=== PATIENT | male | born 1955 | race Caucasian/White ===

== ENCOUNTER 2024-05-29 13:50 | Emergency (ER) | payer MEDICARE, SELFPAY ==
[2024-05-29 14:01] VITALS: BP 130/74; PULSE 112; RESP 18; TEMP 36.7; O2SAT 98
--- NOTE | 2024-05-29 14:05 | ECG_ITS ---
Test Date: 2024-05-29 14:27:31 Measurements Intervals [place] Rate: 102 P: 64 CT: 167 QRS: 7 QRSD: 97 T: 40 QT: 321 QTc: 419 Interpretive Statements SINUS TACHYCARDIA POSSIBLE LEFT ATRIAL ENLARGEMENT POSSIBLE ANTERIOR MYOCARDIAL INFARCTION , PROBABLY OLD INFERIOR INFARCT, AGE INDETERMINATE BASELINE ARTIFACT- I, III, AVR, AVL ABNORMAL ECG No previous ECG available for comparison Electronically Signed On 05-29-2024 15:50:30 CDT by Magnus Lobo D.O.
--- NOTE | 2024-05-29 14:05 | ED.EYEPROB ---
HPI - Eye Problem General Chief complaint: Eye Problems <Estellaconstance Alfonso APRN - Last Filed: 05/29/24 14:08> Stated complaint: Left eye swelling/redness <Estella Whelan PALOMO Alfonso - Last Filed: 05/29/24 14:08> Time Seen by Provider: 05/29/24 14:00 <Estella LLorri Alfonso APRN - Last Filed: 05/29/24 14:08> Focused HPI: Patient is a 69-year-old male who presents to the ER with complaints of left eye pain and redness started approximately 4-5 days ago. He reports the redness has progressively become worse along with the soreness. Patient reports his eye feels like it has a rock in it. He reports when he wakes up in the morning his eye is crusted shut. Pt denies any other pertinent medical history. GENERAL: Well-appearing, well-nourished, and in no acute distress. HEAD: Normocephalic, atraumatic. L sclera red, no eyelid edema, no visible drainage CHEST: Clear to auscultation. ?No respiratory distress. HEART: Regular rate and rhythm.? NEURO: ?Alert and oriented x3. Patient screened in triage and initial orders placed.? ?Additional care and disposition to be based upon?diagnostic testing and treatment. <Estella Alfonso APRN - Last Filed: 05/29/24 14:08> Source: patient <Grady Wells PA-C - Last Filed: 05/30/24 02:25> Mode of arrival: ambulatory <YUE Akhtar Last Filed: 05/30/24 02:25> Limitations: no limitations <YUE Akhtar Last Filed: 05/30/24 02:25> History of Present Illness HPI Narrative: Agree with MSE note above. Patient does had that he was mowing and clipping grass this same day as when symptoms started. He does note that the left eye feels matted shut in the mornings with crust. Endorses some blurry vision but no headache or seeing halos. <YUE Akhtar Last Filed: 05/30/24 02:25> Related Data Allergies/adverse reactions: Allergies Allergy/AdvReac Type Severity Reaction Status Date / Time No Known Allergies Allergy Mild Verified 05/29/24 13:51 <Estella Alfonso APRN - Last Filed: 05/29/24 14:08> Review of Systems Review of Systems: All systems as dictated in HPI <Grady Wells PA-C - Last Filed: 05/30/24 02:25> Exam Narrative: GENERAL: Well-appearing, well-nourished, and in no acute distress. HEAD: Normocephalic, atraumatic. EYES: PERRLA and EOMI. The left conjunctiva is injected with scant amount of drainage. Wood's lamp exam does not reveal any corneal abrasion or foreign bodies. Negative Jessica sign. IOP is 16 bilaterally. ENT: Nares clear, no rhinorrhea or epistaxis. Mucous membranes moist. Oropharynx without tonsillar hypertrophy exudate or other lesions. NECK: Supple. No adenopathy or masses. CHEST: No respiratory distress. Clear to auscultation. No wheezes rales or rhonchi HEART: Regular rate and rhythm. No murmur heard. Normal peripheral pulses. ABDOMEN: Soft, nontender, nondistended, normal active bowel sounds. MSK: Normal range of motion. No edema. SKIN: Warm, dry, no rash. NEURO: Alert and oriented x4. No focal deficits. PSYCH: Normal mood and affect. <Grady Wells PA-C - Last Filed: 05/30/24 02:25> Course Vital Signs Vital signs: Vital Signs Temperature 98.1 F 05/29/24 14:01 Pulse Rate 112 H 05/29/24 14:01 Respiratory Rate 18 05/29/24 14:01 Blood Pressure 130/74 05/29/24 14:01 Pulse Oximetry 98 05/29/24 14:01 Temperature 98.1 F 05/29/24 14:01 Pulse Rate 112 H 05/29/24 14:01 Respiratory Rate 18 05/29/24 14:01 Blood Pressure 130/74 05/29/24 14:01 Pulse Oximetry 98 05/29/24 14:01 <Estella Alfonso APRN - Last Filed: 05/29/24 14:08> Vital Signs Temperature 98.1 F 05/29/24 14:01 Pulse Rate 112 H 05/29/24 14:01 Respiratory Rate 18 05/29/24 14:01 Blood Pressure 130/74 05/29/24 14:01 Pulse Oximetry 98 05/29/24 14:01 Temperature 98.1 F 05/29/24 14:01 Pulse Rate 112 H 05/29/24 14:01 Respiratory Rate 18 05/29/24 14:01 Blood Pressure 130/74 05/29/24 14:01 Pulse Oximetry 98 05/29/24 14:01 <Grady Wells PA-C - Last Filed: 05/30/24 02:25> MDM - Eye Problem MDM Narrative Medical decision making narrative: This is a 69-year-old male who presents to the ED for chief complaint of left eye redness and drainage for the past 4-5 days after mowing the grass. Vitals are normal. Exam remarkable for injected left conjunctiva. No foreign bodies or corneal abrasions appreciated. Intra-ocular pressures bilaterally are normal. Presentation most likely consistent with bacterial conjunctivitis. Patient will be given Rx for ofloxacin drops and instructed to follow-up with [facility] this week. Patient will be discharged in stable condition. Supportive measures discussed and return precautions given. Patient is understanding and agreeable with plan for discharge with ophthalmology follow-up. <Grady Wells PA-C - Last Filed: 05/30/24 02:25> Discharge Plan Discharge Clinical Impression: Bacterial conjunctivitis <Estella Alfonso APRN - Last Filed: 05/29/24 14:08> Patient Disposition: Home <Estella Alfonso APRN - Last Filed: 05/29/24 14:08> Condition: Stable <Estella Alfonso APRN - Last Filed: 05/29/24 14:08> Instructions: Antibiotic Form <Estella Alfonso APRN - Last Filed: 05/29/24 14:08> Additional Instructions: Your exam today is likely showing bacterial conjunctivitis. Please use antibiotics drops as prescribed. Follow-up with [facility] this week. If you have any new or worsening symptoms please return to the ER for further evaluation. <Estella Alfonso APRN - Last Filed: 05/29/24 14:08> Patient Language: Citizen Of [place] <Estella Alfonso APRN - Last Filed: 05/29/24 14:08> Prescriptions: New ofloxacin 0.3 % drops See Rx Instructions .ROUTE .COMPLEX Qty: 5 0RF Rx Instructions: put 1-2 drps into affected eye(s) every 2-4 h x 2 days, then 1-2 drps 4 times/day days 3-7 <Estella Alfonso APRN - Last Filed: 05/29/24 14:08> Follow-up/Referrals: PHYSICIAN,CREDIT COLLECTIONS ANALYST [Non-Staff] - <Estella Alfonso APRN - Last Filed: 05/29/24 14:08> Time of Disposition: 17:58 <Estella Alfonso APRN - Last Filed: 05/29/24 14:08> 17:58 <Grady Wells PA-C - Last Filed: 05/30/24 02:25>
--- OUTSIDE RECORDS SUMMARY | 2024-05-29 15:41 | XMS_ITS | Data Portability ---
Author Organization [facility] Address [address] [place] [address] Assessment No assessment recorded. Plan of Treatment Reminders Order Date Submit Date Provider Last Modified By Organization Details Last Modified Time Details Appointments None recorded. Lab alkaline phosphatase , bone-specif ic, serum 2023 024 [facility], [address] [place] [address], [address], [place], [address], 4 06:15:48 gamma-gluta myl transferase (ggt), serum 2023 024 [facility], [address] [facility] [address], [address], [place], [address], 4 06:15:49 bilirubin, total + direct, serum or plasma 2023 024 [facility], [address], [address], [place], [address], 4 06:15:49 influenza virus A + B and SARS CoV 2 and SARS-relate d CoV RNA panel, SHANIKA+probe, respiratory specimen 2023 024 [facility], [address] [facility] [facility], [place], [address], 4 14:09:17 TSH, ultra-sensi tive, serum 2023 024 F[facility], [address] [place], [place] [address] [address], [address], [place], [address], 4 06:15:50 CBC w/ auto diff 2021 022 [facility], [address] [facility], [address], [place], [address], 2 15:50:06 urinalysis, dipstick 2021 022 oao [facility], [address] [place] [address], [address], [place], [address], 2 15:50:06 CMP, serum or plasma 2021 022 [facility], [address] [place] [address], [address], [place], [address], 2 15:50:06 lipid panel, serum 2021 022 [facility], [address] [place] [address], [address], [place], [address], 2 15:50:06 PSA, total, serum or plasma 2021 022 [facility], [address] [place] [address], [address], [place], [address], 2 15:50:06 noninvasive colorectal cancer DNA + occult blood screening, QL, stool 2021 022 [facility] (Cologuard Orders Only), [address], [address], [place], [address], 3 10:30:55 Referral None recorded. Procedures None recorded. Surgeries None recorded. Imaging US, liver - Elevated Bilirubin 2023 024 [facility] (One Call Scheduling), [address] [facility] [place], [address], 4 22:27:51 XR, chest, 2 view - Chronic cough 2022 023 [facility] (One Call Scheduling), [address] [place], [address], 3 14:54:04 XR, chest, 2 view - Cough 2021 022 [facility] (One Call Scheduling), [address] [place], [address], 3 10:28:28 Medication Orders fluticasone propionate 50 mcg/actuati on nasal spray,suspe nsion 2023 024 [facility], [address] [place] [address], [id number], 4 16:38:09 atorvastati n 80 mg tablet 2023 024 [facility], [address] [place] [address], [id number], 5 13:52:21 cholecalcif oleg (vitamin D3) 50 mcg (2,000 unit) tablet 2023 024 [facility], [address] [place] [address], [id number], 4 16:32:08 olmesartan 20 mg tablet 2023 024 [facility], [address] [place] [address], [id number], 5 13:52:22 fluticasone propionate 50 mcg/actuati on nasal spray,suspe nsion 2022 023 [facility], [address] [place] [address], [id number], 4 16:32:09 Zithromax Z-Zeb 250 mg tablet 2022 023 [facility], [address] [place] [address], [id number], 4 15:52:27 promethazin e-DM 6.25 mg-15 mg/5 mL oral syrup 2022 023 [facility], [address] [place] [address], [id number], 4 15:52:34 fluticasone propionate 50 mcg/actuati on nasal spray,suspe nsion 2021 022 [facility], [address] [place] [address], [id number], 2 16:01:14 atorvastati n 80 mg tablet 2021 022 [facility], [address] [place] [address], [id number], 3 12:29:29 olmesartan 20 mg tablet 2021 022 [facility], [address] [place] [address], [id number], 3 14:40:22 amoxicillin 875 mg-potassiu m clavulanate 125 mg tablet 2021 022 [facility], [address] [place] [address], [id number], 3 15:25:35 Patient TargetsNo targets recorded. Patient Instructions Encounter Date Encounter Id Patient Instructions Last Modified By Organization Details Last Modified Time 10/29/2021 [id number] earwax blockage: care instructions oajao Not available 10/29/2021 15:51:33 high cholesterol : care instructions oajao Not available 10/29/2021 15:51:33 learning about h igh blood pressure oajao Not available 10/29/2021 15:51:33 chronic sinusiti s: care instructions oajao Not available 10/29/2021 15:50:28 Consultation not e from the experimental mechanic outboard motors, Dr Wolfgang [facility] Augmentin He should really get back in with thedermatologist for the appropriate refills. CXR if there is no improvement Restart Flonase NS Follow up in 6 weeks oajao Not available 10/29/2021 18:35:23 05/19/2022 [id number] learning about healthy weight oajao Not available 05/19/2022 16:26:56 upper respirator y infection (cold): care instructions oajao Not available 05/19/2022 15:36:53 Azithromycin Promethazine DM PRN CXR if there is no improvement Labs as previously ordered Follow up ~ 3 months and PRN oajao Not available 05/19/2022 16:26:38 04/29/2023 [id number] high cholesterol : care instructions oajao Not available 04/29/2023 16:27:53 prediabetes: car e instructions oajao Not available 04/29/2023 16:26:05 abnormal weight loss: care instructions oajao Not available 04/29/2023 16:26:05 Labs US Cologuar d as ordered Schedule the seasonal COVID vaccine Follow up in 2 months oajao Not available 04/29/2023 16:17:40 Reason for Referral None Reported. Results Created Date Observation Date Name Description Value Unit Range Abnormal Flag Note LastModifiedBy Organization Detail LastModifiedTime 10/30/1910/29/2022 COLOG UARD cologuard result CANCEL LED - ORDER D not applic able Not Available [facility] (Cologuard Orders Only) [address], [place], [address], 10/29/2022 10:30:55 12/10/1912/10/2022 LIPID PANEL cholesterol, total 115 mg/dL 100-19 9 Not Available [facility] Department [address] [place], [address], 12/10/2022 06:17:53 12/10/1912/10/2022 LIPID PANEL triglyceride s 79 mg/dL 0-149 Not Available [facility] Department [address] [place], [address], 12/10/2022 06:17:53 12/10/19 23 12/10/2022 LIPID PANEL HDL cholesterol 34 mg/dL 40-999 below low normal Not Available [facility] Department [address] [place], [address], 12/10/2022 06:17:53 12/10/19 23 12/10/2022 LIPID PANEL VLDL cholesterol mamta 16 mg/dL 5-40 Not Available [facility] Department [address] [place], [address], 12/10/2022 06:17:53 12/10/1912/10/2022 LIPID PANEL LDL chol calc (nih) 75 mg/dL 0-99 Not Available [facility] Department [address] [place], [address], 12/10/2022 06:17:53 12/10/19 23 12/10/2022 COMP. METAB OLIC PANEL (14) glucose 93 mg/dL 70-99 Not Available [facility] Department [address] [place], [address], 12/10/2022 06:17:53 12/10/19 23 12/10/2022 COMP. METAB OLIC PANEL (14) BUN 15 mg/dL 8-27 Not Available [facility] Department [address] [place], [address], 12/10/2022 06:17:53 12/10/19 23 12/10/2022 COMP. METAB OLIC PANEL (14) creatinine 0.82 mg/dL 0.76-1 .27 Not Available [facility] Department [address] [place], [address], 12/10/2022 06:17:53 12/10/19 23 12/10/2022 COMP. METAB OLIC PANEL (14) eGFR 95 >=60 Units for eGFR value s are mL/mi n/1.7 3 The eGFR Calcu latio n has not been valid ated for patie nts under the age of 18. If test resul ts are displ ayed for a patie nt under the age of 18, disre phong that value . Not Available [facility] Department [address] [place] [address], [address], 12/10/2022 06:17:53 12/10/19 23 12/10/2022 COMP. METAB OLIC PANEL (14) BUN/creatini ne ratio 18 10-24 Not Available [facility] Department [address] [place] [address], [address], 12/10/2022 06:17:53 12/10/19 23 12/10/2022 COMP. METAB OLIC PANEL (14) sodium 141 mmol/ L 134-14 4 Not Available [facility] Department [address] [place] [address], [address], 12/10/2022 06:17:53 12/10/19 23 12/10/2022 COMP. METAB OLIC PANEL (14) potassium 4.6 mmol/ L 3.5-5. 2 Not Available [facility] Department [address] [place] [address], [address], 12/10/2022 06:17:53 12/10/19 23 12/10/2022 COMP. METAB OLIC PANEL (14) chloride 105 mmol/ L 96-106 Not Available [facility] Department [address] [place] [address], [address], 12/10/2022 06:17:53 12/10/19 23 12/10/2022 COMP. METAB OLIC PANEL (14) carbon dioxide, total 28 mmol/ L 20-29 Not Available [facility] Department [address] [place] [address], [address], 12/10/2022 06:17:53 12/10/19 23 12/10/2022 COMP. METAB OLIC PANEL (14) calcium 9.4 mg/dL 8.6-10 .2 Not Available [facility] Department [address] [place], [address], 12/10/2022 06:17:53 12/10/19 23 12/10/2022 COMP. METAB OLIC PANEL (14) protein, total 6.3 g/dL 6.0-8. 5 Not Available [facility] Department [address] [place], [address], 12/10/2022 06:17:53 12/10/19 23 12/10/2022 COMP. METAB OLIC PANEL (14) albumin 4.2 g/dL 3.9-4. 9 Not Available [facility] Department [address] [place], [address], 12/10/2022 06:17:53 12/10/19 23 12/10/2022 COMP. METAB OLIC PANEL (14) globulin, total 2.1 g/dL 1.5-4. 5 Not Available [facility] Department [address] [place], [address], 12/10/2022 06:17:53 12/10/19 23 12/10/2022 COMP. METAB OLIC PANEL (14) A/G ratio 2.0 1.2-2. 2 Not Available [facility] Department [address] [place], [address], 12/10/2022 06:17:53 12/10/19 23 12/10/2022 COMP. METAB OLIC PANEL (14) bilirubin, total 1.7 mg/dL 0.0-1. 2 above high normal Not Available [facility] Department [address] [place], [address], 12/10/2022 06:17:53 12/10/19 23 12/10/2022 COMP. METAB OLIC PANEL (14) alkaline phosphatase 128 IU/L 44-121 above high normal Not Available [facility] Department [address] [place], [address], 12/10/2022 06:17:53 12/10/19 23 12/10/2022 COMP. METAB OLIC PANEL (14) AST (SGOT) 27 IU/L 0-40 Not Available [facility] Department [address] [place], [address], 12/10/2022 06:17:53 12/10/19 23 12/10/2022 COMP. METAB OLIC PANEL (14) ALT (SGPT) 29 IU/L 0-44 Not Available [facility] Department [address] [place], [address], 12/10/2022 06:17:53 12/10/1912/09/2022 URINA LYSIS , ROUTI NE specific gravity 1.020 1.005- 1.030 Not Available [facility] Department [address] [place], [address], 12/10/2022 06:17:54 12/10/1912/09/2022 URINA LYSIS , ROUTI NE pH 5.5 5.0-7. 0 Not Available [facility] Department [address] [place], [address], 12/10/2022 06:17:54 12/10/1912/09/2022 URINA LYSIS , ROUTI NE urine-color YELLOW yellow Not Available [facility] Department [address] [place], [address], 12/10/2022 06:17:54 12/10/1912/09/2022 URINA LYSIS , ROUTI NE appearance CLEAR Not Available [facility] Department [address] [place], [address], 12/10/2022 06:17:54 12/10/19 23 12/09/2022 URINA LYSIS , ROUTI NE WBC esterase COMMEN T NEGAT CAITY Not Available [facility] Department [address] [place], [address], 12/10/2022 06:17:54 12/10/19 23 12/09/2022 URINA LYSIS , ROUTI NE protein COMMEN T NEGAT CAITY Not Available [facility] Department [address] [place], [address], 12/10/2022 06:17:54 12/10/19 23 12/09/2022 URINA LYSIS , ROUTI NE glucose COMMEN T NEGAT CAITY Not Available [facility] Department [address] [place], [address], 12/10/2022 06:17:54 12/10/1912/09/2022 URINA LYSIS , ROUTI NE ketones COMMEN T NEGAT CAITY Not Available [facility] Department [address] [place], [address], 12/10/2022 06:17:54 12/10/1912/09/2022 URINA LYSIS , ROUTI NE occult blood COMMEN T NEGAT CAITY Not Available [facility] Department [address] [place], [address], 12/10/2022 06:17:54 12/10/1912/09/2022 URINA LYSIS , ROUTI NE bilirubin COMMEN T NEGAT CAITY Not Available [facility] Department [address] [place], [address], 12/10/2022 06:17:54 12/10/1912/09/2022 URINA LYSIS , ROUTI NE urobilinogen ,semi-qn 0.2 eu/dL 0.2-1. 0 Not Available [facility] Department [address] [place], [address], 12/10/2022 06:17:54 12/10/1912/09/2022 URINA LYSIS , ROUTI NE nitrite, urine COMMEN T negati ve NEGAT CAITY Not Available [facility] Department [address] [place], [address], 12/10/2022 06:17:54 12/10/1912/09/2022 CBC WITH DIFFE RENTI AL/PL ATELE T WBC 6.1 x10e3 /uL 3.4-10 .8 Not Available [facility] Department [address] [place], [address], 12/10/2022 06:17:55 12/10/1912/09/2022 CBC WITH DIFFE RENTI AL/PL ATELE T RBC 4.98 x10e6 /uL 4.14-5 .80 Not Available [facility] Department [address] [place], [address], 12/10/2022 06:17:55 12/10/1912/09/2022 CBC WITH DIFFE RENTI AL/PL ATELE T hemoglobin 14.7 g/dL 13.0-1 7.7 Not Available [facility] Department [address] [place], [address], 12/10/2022 06:17:55 12/10/1912/09/2022 CBC WITH DIFFE RENTI AL/PL ATELE T hematocrit 46.2 % 37.5-5 1.0 Not Available [facility] Department [address] [place], [address], 12/10/2022 06:17:55 12/10/1912/09/2022 CBC WITH DIFFE RENTI AL/PL ATELE T MCV 93 fL 79-97 Not Available [facility] Department [address] [place], [address], 12/10/2022 06:17:55 12/10/1912/09/2022 CBC WITH DIFFE RENTI AL/PL ATELE T MCH 29.5 pg 26.6-3 3.0 Not Available [facility] Department [address] [place], [address], 12/10/2022 06:17:55 12/10/1912/09/2022 CBC WITH DIFFE RENTI AL/PL ATELE T MCHC 31.8 g/dL 31.5-3 5.7 Not Available [facility] Department [address] [place], [address], 12/10/2022 06:17:55 12/10/19 23 12/09/2022 CBC WITH DIFFE RENTI AL/PL ATELE T RDW 12.5 % 11.5-1 4.5 Not Available [facility] Department [address] [place], [address], 12/10/2022 06:17:55 12/10/1912/09/2022 CBC WITH DIFFE RENTI AL/PL ATELE T platelets 241 x10e3 /uL 150-45 0 Not Available [facility] Department [address] [place], [address], 12/10/2022 06:17:55 12/10/19 23 12/09/2022 CBC WITH DIFFE RENTI AL/PL ATELE T neutrophils 70 % notest b. Not Available [facility] Department [address] [place], [address], 12/10/2022 06:17:55 12/10/19 23 12/09/2022 CBC WITH DIFFE RENTI AL/PL ATELE T lymphs 14 % notest b. Not Available [facility] Department [address] [place], [address], 12/10/2022 06:17:55 12/10/19 23 12/09/2022 CBC WITH DIFFE RENTI AL/PL ATELE T monocytes 11 % notest b. Not Available [facility] Department [address] [place], [address], 12/10/2022 06:17:55 12/10/19 23 12/09/2022 CBC WITH DIFFE RENTI AL/PL ATELE T eos 4 % notest b. Not Available [facility] Department [address] [place], [address], 12/10/2022 06:17:55 12/10/19 23 12/09/2022 CBC WITH DIFFE RENTI AL/PL ATELE T basos 1 % notest b. Not Available [facility] Department [address] [place], [address], 12/10/2022 06:17:55 12/10/19 23 12/09/2022 CBC WITH DIFFE RENTI AL/PL ATELE T neutrophils (absolute) 4.3 x10e3 /uL 1.4-7. 0 Not Available [facility] Department [address] [place], [address], 12/10/2022 06:17:55 12/10/1912/09/2022 CBC WITH DIFFE RENTI AL/PL ATELE T lymphs (absolute) 0.9 x10e3 /uL 0.7-3. 1 Not Available [facility] Department [address] [place], [address], 12/10/2022 06:17:55 12/10/1912/09/2022 CBC WITH DIFFE RENTI AL/PL ATELE T monocytes(ab solute) 0.7 x10e3 /uL 0.1-0. 9 Not Available [facility] Department [address] [place], [address], 12/10/2022 06:17:55 12/10/1912/09/2022 CBC WITH DIFFE RENTI AL/PL ATELE T eos (absolute) 0.2 x10e3 /uL 0.0-0. 4 Not Available [facility] Department [address] [place], [address], 12/10/2022 06:17:55 12/10/1912/09/2022 CBC WITH DIFFE RENTI AL/PL ATELE T baso (absolute) 0.0 x10e3 /uL 0.0-0. 2 Not Available [facility] Department [address] [place], [address], 12/10/2022 06:17:55 12/10/19 23 12/09/2022 CBC WITH DIFFE RENTI AL/PL ATELE T immature granulocytes 0 % notest b. Not Available [facility] Department [address] [place], [address], 12/10/2022 06:17:55 12/10/19 23 12/09/2022 CBC WITH DIFFE RENTI AL/PL ATELE T immature grans (abs) 0.0 x10e3 /uL 0.0-0. 1 Not Available [facility] Department [address] [place], [address], 12/10/2022 06:17:55 12/10/19 23 12/09/2022 CBC WITH DIFFE RENTI AL/PL ATELE T NRBC 0 % 0-0 Not Available [facility] Department [address] [place], [address], 12/10/2022 06:17:55 12/10/1912/09/2022 HEMOG LOBIN A1C hemoglobin A1C 5.7 % 4.8-5. 6 above high normal Predi abete s: 5.7 - 6.4 Diabe ulysses: >6.4 Glyce francisco j contr ol for adult s with diabe ulysses: <7.0 Not Available [facility]) [address] [facility], [place], [address], 12/10/2022 08:35:29 12/10/1912/10/2022 PROST ATE-S PECIF IC AG prostate specific Ag 1.6 NG/mL 0.0-4. 0 Sebas ECLIA metho dolog y. Accor ding to the Ameri can Urolo gical Assoc iatio n, Serum PSA shoul d decre ase and remai n at undet ectab le level s after radic al prost atect robby. The AUA defin es bioch emica l recur rence as an initi al PSA value 0.2 ng/mL or great er follo wed by a subse quent confi rmato ry PSA value 0.2 ng/mL or great er. Value s obtai sam with diffe rent assay metho ds or kits canno t be used inter pan eably . Resul ts canno t be inter prete d as absol cristina evide nce of the prese nce or absen ce of [facility] se. Not Available [facility] ([facility]) [address] [facility], [place], [address], 12/10/2022 08:35:30 12/10/19 23 12/10/2022 VITAM IN D, 25-HY DROXY vitamin D, 25-hydroxy 25.9 NG/mL 30.0-1 00.0 below low normal Vitam in D defic iency has been defin ed by the Insti tute of Medic ine and an Endoc rine Socie ty pract ice guide line as a level of serum 25-OH vitam in D less than 20 ng/mL (1,2) . The Endoc rine Socie ty went on to furth er defin e vitam in D insuf ficie ncy as a level betwe en 21 and 29 ng/mL (2). 1. IOM (Inst itute of Medic ine). 2009. Dieta ry refer ence intak es for calci um and D. Maksim [place]: The [facility] . 2. Zeyad bliss [place], Seymour ey [place], Pepe off-F errar i GONZALES, et al. Evalu ation , treat ment, and preve ntion of vitam in D defic iency : an Endoc rine Socie ty clini mamta pract ice guide line. JCEM. 2010; 96(7) :1911 -30. Not Available [facility] ([facility]) [address] [facility], [place], [address], 12/10/2022 08:35:31 04/29/19 24 05/03/2023 ALK PHOSP HATAS E, BONE SPECI FIC alk phosphatase, bone specific 21.0 ug/L 7.6-24 .8 Not Available [facility]) [address] [place], [address], 05/04/2023 06:15:48 04/29/1905/04/2023 ALK PHOSP HATAS E, BONE SPECI FIC pdf . Not Available [facility] ([facility]) [address] [place], [address], 05/04/2023 06:15:48 04/29/19 24 04/30/2023 BILIR UBIN, TOTAL /DIRE CT, SERUM bilirubin, total 1.2 mg/dL 0.0-1. 2 Not Available [facility]) [address] [place], [address], 05/04/2023 06:15:48 04/29/19 24 04/30/2023 BILIR UBIN, TOTAL /DIRE CT, SERUM bilirubin, direct 0.27 mg/dL 0.00-0 .40 Not Available [facility]) [address] [place], [address], 05/04/2023 06:15:48 04/29/19 24 04/30/2023 BILIR UBIN, TOTAL /DIRE CT, SERUM bilirubin, indirect 0.93 mg/dL 0.10-0 .80 above high normal Not Available [facility]) [address] [place], [address], 05/04/2023 06:15:48 04/29/19 24 04/30/2023 GGT GGT 21 IU/L 0-65 Not Available [facility]) [address] [place], [address], 05/04/2023 06:15:49 04/29/19 24 04/30/2023 TSH TSH 1.170 uIU/m L 0.450- 4.500 Not Available [facility]) [address] [place], [address], 05/04/2023 06:15:50 05/17/19 24 05/17/2023 US, liver No observ ation record ed. [email or web address] [facility] [address] [place], [address], 09/08/2023 17:50:23 Result Notes None recorded. Problems Name Problem SNOMED Code Status Onset Date Resolution Date Notes Provider Name and Address Organization Details Recorded Time Rib pain 687296657 Active 2016 Jessica Livingston PA-C Attn: Accounting ,[address] [facility], [place], [address] , [place] [facility] 7 15:57:26 Impaired fasting glycemia 383317586 Active 2023 Dashawn Man MD Attn: Accounting ,[address] [place], [address] , [place] [facility] 4 16:01:21 Essential hypertension 01676213 Active Dashawn Man MD Attn: Accounting ,[address] [facility], [place], [address] , [place] [facility] 2 15:51:00 Atopic dermatitis 30655609 Active Jessica Livingston PA-C Attn: Accounting ,[address] [place], [address] , [place] [facility] 6 10:44:50 Allergic rhinitis 06887187 Active Jessica Livingston PA-C Attn: Accounting ,[address] [facility], [place], [address] , [place] [facility] 6 10:44:50 Hyperlipidemi a 61964750 Active Dashawn Man MD Attn: Accounting ,[address] [place], [address] , [place] [facility] 2 15:50:51 Sinusitis 60176046 Active 2016 Jessica Livingston PA-C Attn: Accounting ,[address] [place], [address] , [place] [facility] 7 15:21:47 Impacted cerumen 28978678 Active 2016 Dashawn Man MD Attn: Accounting ,[address] [place], [address] , [facility] 2 15:50:56 Screening for malignant neoplasm of colon Active 2016 Jessica Livingston PA-C Attn: Accounting ,[address] [place], [address] , [facility] 7 09:23:16 Screening for malignant neoplasm of prostate Active 2016 Jessica Livingston PA-C Attn: Accounting ,[address] [place], [address] , [facility] - [facility] 7 09:25:15 Problem Notes None recorded. Procedures Surgical History Date Name Laterality Status Provider Name and Address Organization Details Recorded Time 7 Cerumen Removal completed Jessica Livingston PA-C Attn: Accounting,[address] [place], [address], [facility] 03/03/2016 16:28:51 4 Hernia Repair completed Dashawn Man MD Attn: Accounting,[address] [place], [address], [facility] 04/18/2018 17:09:33 Imaging Results Imaging Date Name Status LastModified by Organiz ation Details LastModified Time 05/17/2023 US, liver completed [email or web address] [facility] [address] [place], [address], 09/08/2023 17:50:23 Procedure Notes None recorded. Medical Equipment None Reported. Allergies No known drug allergies Medications Name Sig Start Date Stop Date Status Note LastModified by Organization Details LastModified Time losartan 50 mg tablet TAKE 1 TABLET(S) EVERY DAY BY MOUTH FOR BLOOD PRESSURE 08/24 completed Not Available Not Available Not Available cyclobenzap rine 10 mg tablet Take 1 tablet 3 times a day by oral route as needed for 15 days. 04/28 completed Not Available Not Available Not Available buspirone 5 mg tablet TAKE 2 TABLETS TWICE DAILY DIRECTED 05/19 completed PRN Not Available Not Available Not Available desonide 0.05 % topical cream APPLY SPARINGLY AND RUB GENTLY INTO THE AFFECTED AREA(S) TWO TIMES DAILY FOR 7 DAYS AND THEN STOP FOR 7 DAYS 11/13 completed Not Available Not Available Not Available promethazin e-DM 6.25 mg-15 mg/5 mL oral syrup take FIVE ML BY MOUTH EVERY 4 HOURS NEEDED FOR FOUR DAYS 04/28 completed Not Available Not Available Not Available atorvastati n 80 mg tablet Take 1 tablet every day by oral route at bedtime for 90 days, for To LOWER CHOLESTER OL. 2023 active Not Available Not Available Not Avai lable cetirizine 10 mg tablet Take 1 tablet every day by oral route. 01/27 completed Not Available Not Available Not Available azithromyci n 250 mg tablet TAKE 2 TABLETS BY MOUTH ON DAY 1, THEN TAKE 1 TABLET DAILY ON DAYS 2-5 04/28 completed Not Available Not Available Not Available meloxicam 15 mg tablet TAKE 1 TABLET(S) EVERY DAY BY ORAL ROUTE. active Not Available Not Available No t Available lisinopril 20 mg tablet TAKE 1 TABLET(S) EVERY DAY BY MOUTH FOR BLOOD PRESSURE 12/18 completed Not Available Not Available Not Available valsartan 80 mg tablet Take 1 tablet every day by oral route as directed for 30 days. 08/24 completed Not Available Not Available Not Available simvastatin 40 mg tablet Take 1 tablet every day by oral route in the evening. 01/27 completed Not Available Not Available Not Available benzonatate 100 mg capsule Take 1 capsule 3 times a day by oral route as needed for 7 days. 10/29 completed Not Available Not Available Not Available buspirone 10 mg tablet TAKE 1 TABLET(S) TWICE A DAY BY ORAL ROUTE DIRECTED FOR 30 DAYS. 06/28 completed Not Available Not Available Not Available hydrocortis one 2.5 % topical cream APPLY CREAM TO ITCHY SCROTUM AREAS ONCE DAILY AT BEDTIME 05/19 completed Not Available Not Available Not Available halobetasol propionate 0.05 % topical cream APPLY CREAM TOPICALLY TWICE DAILY TO RIGHT FOOT RASH DIRECTED 05/19 completed Not Available Not Available Not Available methylpredn isolone 4 mg tablets in a dose pack Takeas directed 10/29 completed Not Available Not Available Not Available fluticasone propionate 50 mcg/actuati on nasal spray,suspe nsion SPRAY TWO PUFFS IN EACH NOSTRIL EVERY DAY active Not Available Not Available No t Available pseudoephed rine 60 mg tablet Take 1 tablet every 6 hours by oral route as needed for 5 days. 11/13 completed Not Available Not Available Not Available Sudafed 30 mg tablet Take 2 tablets every 6 hours by oral route as directed for 5 days. 10/29 completed Not Available Not Available Not Available amoxicillin 875 mg-potassiu m clavulanate 125 mg tablet TAKE ONE TABLET BY MOUTH EVERY TWELVE HOURS FOR SEVEN DAYS 05/19 completed Not Available Not Available Not Available olmesartan 20 mg tablet TAKE ONE TABLET BY MOUTH EVERY DAY FOR BLOOD PRESSURE active Not Available Not Available No t Available Zantac 10/29 completed Not Available Not Available Not Available cholecalcif oleg (vitamin D3) 50 mcg (2,000 unit) tablet TAKE ONE TABLET BY MOUTH EVERY DAY DIRECTED active Not Available Not Available No t Available Vitals Date Recorded Body height Body mass index (BMI) Body weight Heart rate Oxygen saturation Oxygen saturation in Arterial blood by Pulse oximetry Systolic blood pressure Diastolic blood pressure Provider Name and Address Organization Details Last Updated DateTime 2 177.8 cm 25.3 kg/m2 57464.2 6 g 78 /min 97 % 97 % 128 mm[Hg] 78 mm[Hg] Farideh Hargrove MA [facility] 2 15:20:22 Date Recorded Body height Body mass index (BMI) Body weight Oxygen saturation Oxygen saturation in Arterial blood by Pulse oximetry Heart rate Respiratory rate Systolic blood pressure Diastolic blood pressure Provider Name and Address Organization Details Last Updated DateTime 3 177.8 cm 26 kg/m2 38372.2 2 g 97 % 97 % 92 /min 14 /min 124 mm[Hg] 70 mm[Hg] Juanita Baumann MA [facility] 3 15:27:21 Date Recorded Body height Body mass index (BMI) Body weight Oxygen saturation Oxygen saturation in Arterial blood by Pulse oximetry Heart rate Respiratory rate Body temperature Systolic blood pressure Diastolic blood pressure Provider Name and Address Organization Details Last Updated DateTime 4 177.8 cm 24.7 kg/m2 62481.1 7 g 96 % 96 % 94 /min 16 /min 98 [degF] 130 mm[Hg] 70 mm[Hg] Juanita Baumann MA [facility] 4 15:54:04 Social History Question Answer Notes LastModified by Organizat ion Details LastModified Time Tobacco Smoking Status Never Smoker Celina Auguste MA [facility] 06/21/2015 09:59:00 What Is Your Level Of Alcohol Consumption? Occasional Information not available 06/21/2015 What Is Your Level Of Caffeine Consumption? Heavy Information not available 06/21/2015 How Much Tobacco Do You Chew? None Information not available 06/21/2015 Are You Currently Employed? Yes Information not available 06/21/2015 What Type Of Diet Are You Following? REGULAR Information not available 06/21/2015 Do You Or Have You Ever Used E-cigarettes Or Vape? Never Used Electronic Cigarettes Information not available 12/30/2018 Education 12 Information no t available 06/21/2015 What Is Your Occupation? [employer] Information not available 06/21/2015 Are There Any Guns Present In Your Home? Yes Information not available 06/21/2015 Hard Of Hearing Or Deaf In One Or Both Ears? No Information not available 06/21/2015 Legally Blind In One Or Both Eyes? No Information not available 06/21/2015 Live Alone Or With Others? Alone Information not available 06/21/2015 Marital Status Single Information not available 06/21/2015 What Was The Date Of Your Most Recent Tobacco Screening? 04/29/2023 Information not available 04/29/2023 How Many Children Do You Have? 1 Daughter - Average Relationship With Her Information not available 06/21/2015 Seat Belts Used Routinely Yes Information not available 06/21/2015 Are You Sexually Active? Yes Information not available 06/21/2015 Smoke Alarm In Home No Advised To Get Charles Information not available 06/21/2015 Are You Passively Exposed To Smoke? No Information not available 06/21/2015 Do You Or Have You Ever Used Smokeless Tobacco? Never Used Smokeless Tobacco Information not available 12/30/2018 How Much Tobacco Do You Smoke? No Information not available 04/28/2016 General Stress Level Medium Information not available 06/21/2015 Do You Use Sunscreen Routinely? No Never In The Sun Information not available 06/21/2015 On What Date Was Tobacco Cessation Counseling Provided? 05/19/2022 Information not available 05/19/2022 How Many Years Have You Smoked Tobacco? 0 Information not available 04/18/2018 Sex: Unknown Functional Status Question Answer Note LastModified by Organizat ion Details LastModified Time Are you able to care for yourself? Yes Information not available 04/28/2016 What is your exercise level? Occasional Information not available 06/21/2015 Mental Status None recorded. Family History Relationship Description Onset Age of this Age Resolved Age Notes LastModified by Organization Details LastModified Time Mother Heart disease 88 eewig Not available 2015 10:14:26 Mother Cerebrovascu lar accident 88 eewig Not available 10:14:26 Father Heart disease eewig Not available 2015 10:14:26 Medical History Condition Response Coronary Artery Disease N Other N High Blood Pressure Y Atrial Fibrillation N Kidney or Bladder Problems N Thyroid Problems N GI Problems N Depression N COPD N Blood Clots N Skin Problems N Anemia N Heart Attack (HI) N Anxiety Disorder N Diabetes N Muscle, Joint, or Bone Problems Y Seizures/Epilepsy N Acid Reflux (GERD) Y Cancer N Stroke N Asthma N Allergies Y High Cholesterol N Hepatitis N Liver Disease N Headaches N Heart Failure N Osteoporosis N Immunizations Vaccine Type Date Status Note Provider Nam e and Address Organization Details Recorded Time Influenza, split virus, quadrivalent, preservative 0 completed MAXWELL Sau[place], [place] - [facility] 11/14/2019 14:17:33 SARS-COV-2 (COVID-19) vaccine, UNSPECIFIED 1 completed Not Available [facility] 05/19/2022 15:21:38 SARS-COV-2 (COVID-19) vaccine, UNSPECIFIED 1 completed Not Available [facility] 05/19/2022 15:21:38 COVID-19, mRNA, LNP-S, PF, 30 mcg/0.3 mL dose 1 completed Dashawn Man MD Attn: Accounting,[address] [facility], [place], [place], [address] [place] [place] [address], [place] [facility] 10/29/2021 15:31:16 COVID-19, mRNA, LNP-S, PF, 30 mcg/0.3 mL dose 1 completed Dashawn Man MD Attn: Account[address] [place], [place], [address] [place] [place] [address], [place] [facility] 10/29/2021 15:31:16 Influenza, high-dose, quadrivalent, PF 0 completed Dashawn Man MD Attn: Accounting[address] [place], [place], [address] [place] [place] [address], [place] [facility] 10/29/2021 15:31:16 Pneumococcal conjugate PCV 13 9 completed Dashawn Man MD Attn: Accounting,[address] [facility], [place], [place], [address] [place] [place] [address], [place] [facility] 10/29/2021 15:31:16 Tdap 7 completed Not Available [facility] 02/25/2019 02:41:32 Influenza, split virus, quadrivalent, preservative 8 completed Not Available [facility] 02/25/2019 02:36:33 Influenza, split virus, quadrivalent, preservative 9 completed Not Available [facility] 02/25/2019 02:38:46 pneumococcal polysaccharide PPV23 1 completed Dashawn Man MD Attn: Accounting[address] [place], [place], [address] [place] [place] [address], [place] [facility] 09/03/2020 16:36:33 Influenza, split virus, quadrivalent, PF 1 completed Juanita Baumann [place], [place] [facility] 01/14/2021 16:19:37 COVID-19, mRNA, LNP-S, PF, 30 mcg/0.3 mL dose 1 completed Dayanna Thornton [place], [place] [facility] 01/14/2021 17:05:51 Past Encounters Encounter ID Performer Location Encounter Start Date Encounter Closed Date Diagnosis/Indication Diagnosis SNOMED-CT Code Diagnosis ICD10 Code Diagnosis Note [id number] YUE Cantu (Adult Med) [address] [place] [address] 06/21/2015 09:49:18 06/21/2015 10:37:17 Adult health examination 953544257 Z00.01 60YO male here to establish care. He has not seen a PCP in over 25 years. Only complaints today are dry skin on bilateral hands and a patch that waxes and wanes on his right foot and elevated blood pressure that was see Essential hypertension 85678253 I10 Will initiate lisinopril 20mg QD RTC 1 week for BP check Screening for malignant neoplasm of prostate 631543186 Z12.5 Screening for malignant neoplasm of colon 512472276 Z12.11 Currently does not have insurance - will look to referring him for colonosoco py once he finishes his 2014 taxes and talk to [employer] he is self employed Will begin with stool card - shown how to use and given order to bring back when he RTC next week for BP check Atopic dermatitis 558917 01 L20.9 desonide cream has worked in the past - will continue with this Advised to use Eucerin cream as much daily as possible on dry skin Allergic rhinitis 125687 04 J30.9 [id number] YUE Cantu (Adult Med) [address] [place] [address] 07/03/2015 16:11:16 07/03/2015 17:46:32 Essential hypertension 86404526 I10 Will continue 20mg He is going to RTC next Wednesday on 07/10/15 for fasting labs and at that appointmen t he will come in with readings from over the weekend and ask for Dimitrios to have BP checked BP upon recheck: 130/88 Adult heal th examination 229794690 Z00.01 [id number] YUE Cantu (Adult Med) [address] [place] [phone] 12/19/2015 14:49:29 12/20/2015 10:53:50 Essential hypertension 89551897 I10 158/98 - NADAdvised that he needs to take his BP medication RTC 2-3 weeks for nurse's visit for BP checkAdvis ed that if he feels dizzy to check his BP at homeDrink plently of water Body mass index 25-29 - overweight 341446594 Z68.29 Advised 30 minutes of exercise 5 days/week Advised to not drink her calories Advised 3 balanced meals/day with plenty of fruits and vegetables Muscle spa sm of cervical muscle of neck 6673327149 04 M62.838 Occult blo od detected in feces 12898683 R19.5 Advised again that he needs to have a colonoscop y Hyperlipidemia 02622201 E78.5 Moderate to high intensity statin [id number] YUE Cantu (Adult Med) [address] [place] [address] 03/03/2016 13:42:54 03/03/2016 16:40:56 Allergic rhinitis 28229799 J30.9 Essential hypertension 54944122 I10 142/92 - pretty much WNL - NADWill readdress and next general f/u appointmen tAdvised to stay away from caffeine Sinusitis 48224842 J32.9 Advised to drink plenty of waterAlter carlyle ibuprofen and tylenol for painRestOT C cough syrup PRNTake abx as prescribed d/t duration of sx's >tw weeks Impacted cerumen 0330322 6 H61.23 Bilaterall y - was able to get the left ear cerumen removed; however, right ear still impactedAd vised sweet oil 2 drops daily in right earRTC 1 week for ear irrigation [id number] Ailyn Werner is [place] (Adult Med) [address] [place] [address] 03/23/2016 12:57:46 03/23/2016 18:08:47 Impacted cerumen 95800908 H61.23 Bilaterall y - was able to get the left ear cerumen removed; however, right ear still impactedAd vised sweet oil 2 drops daily in right earRTC 1 week for ear irrigation [id number] YUE Cantu (Adult Med) [address] [place] [phone] 04/28/2016 08:46:29 04/29/2016 13:26:01 Hyperlipidemia 53330272 E78.5 Moderate to high intensity statin - will recheck today and fill tomorrow Essential hypertension 93332690 I10 140/92 - pretty much WNL - NADAdvised to stay away from caffeine Active or passive immunization 062402289 Z23 Screening for malignant neoplasm of colon 536118285 Z12.11 Patient has the phone number and informatio nAdvised that is it imperative to have the colonoscop y completed d/t hx/o blood in his stool Screening for malignant neoplasm of prostate 575459167 Z12.5 [id number] YUE Cantu (Adult Med) [address] [place] [address] 01/27/2017 15:10:40 01/27/2017 16:00:05 Atopic dermatitis 03136781 L20.9 desonide cream has worked in the past - will continue with Paresh d to use Eucerin cream as much daily as possible on dry skin Screening for malignant neoplasm of colon 126484686 Z12.11 Patient to complete [facility] emergency department applicatio n today Screening for malignant neoplasm of prostate 557694985 Z12.5 Patient consented to screen Essential hypertension 79175741 I10 128/72 -WNL, NAD - c/w current medication Discussed DASH diet Advised 30 minutes of exercise minimum dailyAdvis ed tobacco, alcohol, caffeine all increase BPAdvised goal for BP is <140/90 Hyperlipidemia 39908731 E78.5 atorvastat in 80mgWill recheck at this time Rib pain 371458275 R07.8 1 Patient declined any w/u at this time and if pain persists he will RTC Advised to take ibuprofen PRN for pain [id number] DULCE CHAHAL (Adult Med) [address] [place] [address] 10/15/2017 15:45:38 10/18/2017 11:23:03 Essential hypertension 94112891 I10 bp elevated today-out of medsrestar t losartanf/ u 6 mosdue for labs at next visit Hyperlipidemia 24743367 E78.2 continue atorvastat inlabs due with next visitf/u 6 mos Shoulder j oint painful on movement 265888337 M25.519 start meloxicams tart at home exercises- possible over use/strain of rotator cufff/u as needed Low back pain 798581825 M54.5 likely mskstart at home exercisesu se meloxicam for painuse heat/ice prn [id number] MAXWELL Irizarry (Adult Med) [address] [place] [address] 12/23/2017 14:17:01 12/23/2017 16:15:11 Administration of influenza vaccine 32848949 Z23 [id number] [facility] [address] [place] [address] 04/18/2018 16:33:14 04/19/2018 09:29:13 Influenza-like symptoms 012995802 R68.89 General ex amination of patient 612692052 Z00.01 Screening for malignant neoplasm of prostate 022241654 Z12.5 Screening for malignant neoplasm of colon 973526967 Z12.11 Hyperlipidemia 90292838 E78.5 Essential hypertension 95549473 I10 Concerned about the Losartan recall Gastroesop hageal reflux disease 708878329 K21.9 Atopic dermatitis 019159 01 L20.9 Stress 11834642 Z73.3 A friend recently gave him XAnax, this helped. I do not prescribe Xanax but he can try Buspirone, side effects were discussed. Lesion of skin of face 2868150895 06 L98.9 Upper resp iratory infection 11053154 J06.9 [id number] MD [place] Segura (Adult Med) [address] [place] [address] 08/24/2018 14:25:36 08/25/2018 08:27:03 General examination of patient 444279250 Z00.01 Screening for malignant neoplasm of prostate 565226103 Z12.5 Pain in right foot 83664 25909 81566 M79.671 Administra tion of pneumococcal vaccine 21875424 Z23 Body mass index 25-29 - overweight 260710996 Z68.26 Essential hypertension 24656536 I10 Stable Hyperlipidemia 64668265 E78.5 [id number] MD [place] Segura (Adult Med) [address] [place] [address] 12/30/2018 14:55:51 01/02/2019 09:06:24 Total bilirubin above reference range 0728400294 40543 R17 Body mass index 25-29 - overweight 439207674 Z68.26 Administra tion of influenza vaccine 62458837 Z23 Lumbar radiculopathy 128 526172 M54.16 Allergic rhinitis 142964 04 J30.9 [place] No dataPseudo phedrineFl onase [id number] MD [place] Segura (Adult Med) [address] [place] [address] 11/14/2019 08:17:10 11/14/2019 21:46:45 Essential hypertension 83090238 I10 Stable Hyperlipidemia 51169360 E78.5 General ex amination of patient 986982773 Z00.01 Screening for malignant neoplasm of prostate 740348059 Z12.5 Viral screening 59164409 4 Z11.59 Screening for malignant neoplasm of colon 261076758 Z12.11 [id number] MD [place] Segura (Adult Med) [address] [place] [address] 06/28/2020 09:28:13 07/01/2020 08:10:00 Fatigue 12228501 R53.83 Administra tion of pneumococcal vaccine 22157053 Z23 Total bili lanier above reference range 5452739290 03212 R17 Medication monitoring 39 0520823 Z51.81 [id number] MD [place] Segura (Adult Med) [address] [place] [address] 0 09/03/2020 15:48:31 09/06/2020 06:49:24 Fatigue 00888092 R53.83 Unexplaine d by his labs.he is quite clear that his symptoms started after completing the Covid vaccine seriesTTE if the Testostero ne levels are normal Administra tion of pneumococcal vaccine 81642545 Z23 Total bili lanier above reference range 8192560723 63452 R17 Chronic neck pain 549896 9786 107 M54.2 Screening for malignant neoplasm of colon 380397885 Z12.11 Throat irritation 167237 007 R07.0 His symptoms are not postural and seem to be brought on by drinking coffee or soda.He needs imaging or direct visualizat ion Cough 17195299 R05 Intermitte nt and associated with the tickle in his throat Impaired f asting glycemia 304524134 R73.01 [id number] MAXWELL Wagoner (Peds) [address] [place] [phone] 01/14/2021 15:17:22 01/15/2021 12:44:19 Administration of SARS-CoV-2 mRNA vaccine 3599968487 Z23 [id number] MAXWELL Saucedo (Adult Med) [address] [place] [address]4471[address] 0 01/14/2021 15:43:35 01/15/2021 03:29:06 Needs influenza immunization 563588516 Z28.3 [id number] MD [place] Segura (Adult Med) [address] [place] [address] 0 10/29/2021 15:10:31 10/30/2021 11:29:22 Screening for malignant neoplasm of prostate 934670170 Z12.5 General ex amination of patient 801625314 Z00.01 Screening for malignant neoplasm of colon 632581893 Z12.11 Persistent cough 2359362 02 R05.3 Sinusitis 03549754 J32.9 Allergic rhinitis 462037 04 J30.9 Hyperlipidemia 82401734 E78.5 Impacted cerumen 5063451 6 H61.23 Hydrogen Peroxide, he may need irrigation of his ear canals Essential hypertension 05419010 I10 Stable [id number] MD [place] Segura (Adult Med) [address] [place] [address] 0 05/19/2022 15:20:11 05/20/2022 08:50:50 Upper respiratory infection 73421592 J06.9 Allergic rhinitis 474322 04 J30.9 Body mass index 25-29 - overweight 289129988 Z68.26 [id number] Dashawn Man MD [facility] (Adult [facility]) [address] [place] [address] 04/29/2023 15:41:37 04/30/2023 09:03:11 Upper respiratory infection 22519143 J06.9 Vitamin D deficiency 347 80408 E55.9 Immunization advised 310 538940 Z71.9 Weight loss 90817375 R63 .4 Impaired f asting glycemia 301357826 R73.01 Alkaline p hosphatase above reference range 172240240 R74.8 Total bili lanier above reference range 9315510501 09643 R17 An US of the liver was previously ordered on 09/03/2020 Allergic rhinitis 564882 04 J30.9 Essential hypertension 10450835 I10 Stable Hyperlipidemia 19619880 E78.5 Health Concerns Section Related Observation LastModified by Organization Detai ls LastModified Time None Recorded Concern Status LastModified by Organization Details LastModified Time None Recorded Advance Directives Directive None Recorded Payers Encounter Date Sequence Insurance Name Policy Number Policy Ferguson Covered Member ID Ferguson Member ID Guarantor Name 01/14/2021 1 [employer] (MEDICARE REPLACEMENT/A DVANTAGE - PPO) Kalyan Johnson Luis Enrique [id number] Kalyan Dudley 01/14/2021 1 [employer] (MEDICARE REPLACEMENT/A DVANTAGE - PPO) Kalyan Dudley [id number] Kalyan Dudley 10/29/2021 MEDICARE [place]: [facility] - [facility] Kalyan Alex Dudely [id number] Kalyan Dudley 05/19/2022 1 [facility] (MEDICARE REPLACEMENT/A DVANTAGE - HMO) [id number] Kalyan Dudley [id number] Kalyan Dudley 04/29/2023 1 [facility] (MEDICARE REPLACEMENT/A DVANTAGE - HMO) [id number] Kalyan Dudley [id number] Kalyan Dudley Notes Date Note Type Note Provider Name and Address Organization Details Recorded Time 10/29/2021 text/html Well, I felt better It felt like something is in my ear (Both) Mr Dudley returns his sinus symptoms and cough are not really any better despite completing the course of Prednisone, Sudafed and Tessalon perles. He also would like a refill of the creams prescribed by the experimental [employer], he called their office and he was told that he needed to make an appointment. His home COVID test was negative. Dashawn Man MD Attn: [address] [place], [address], [facility] 10/29/2021 18:37:28 05/19/2022 text/html CoughReported bypatient.Quality:b arking Severity:worsening; severe Duration:symptoms lasting over 2 weeks Timing:better Context:non-smoker Modifying Factors:OTC medication Associated Symptoms:no chest pain; no heartburn; no nausea; no vomiting; no edema; no agitation; no post nasal drip;fever(Resolved );chills(Resolved); wheezing Acute issues only I had a really itchy throat So much coughing with the phlegm Home COVID test done on ? was negative Dashawn Man MD Attn: Accounting[address] [place], [address], [facility] 05/19/2022 16:27:25 04/29/2023 text/html I got no energy He presents with a low grade fever, scratchy throat and a non productive cough. His appetite is normal and he has no sick contacts. Dashawn Man MD Attn: Accounting[address] [place], [address], [facility] 04/29/2023 18:04:06
--- OUTSIDE RECORDS SUMMARY | 2024-05-29 15:41 | XMS_ITS | Clinical Summary ---
Author Organization [facility] Address [address] [place] [address] Care Team Providers Care Movie Extra Name Role Phone Unavailable Primary Care Provider Unavailabl e Source Comments [facility],non-owned Affiliates and Associated Physician Practices is amultiple site organization consisting of ambulatory clinics and hospital sitesin [place], [place], [place] and [place]. This disclosure is being madepursuant to the Care Everywhere program and may not contain all information available regarding this patient. Last updated 17.[facility] Social History Tobacco Use Types Packs/Day Years Used Date Smoking Tobacco: Never Assessed Sex and Gender Information Value Date Recorded Sex Assigned at Not on file Legal Sex Male 12:34 PM CDT Gender Identity Not on file Sexual Orientation Not on file Plan of Treatment Health Maintenance Due Date Last Done Comments COLOGUARD (AGES 45-75) - COL ON CA SCREENING 1953 COLON MONITORING 1953 COLONOSCOPY - COLON CA SCREENING 1953 CT COLONOGRAPHY - COLON CA SCREENING 1953 Colorectal Cancer Screening 1953 FIT - COLON CA SCREENING 1953 FLEX SIG - COLON CA SCREENING 1953 LIPID TESTING 1953 MEDICARE AWV 12 MONTHS 1953 HEPATITIS C SCREENING 03/25/1971 DTAP/TDAP/TD VACCINES (1 - Tdap) 1972 PNEUMOCOCCAL VACCINE 50+ (1 of 1 - PCV) 2003 ZOSTER VACCINE (1 of 2) 2003 COVID-19 VACCINE ( - 2023-2 5 season) 2023 DEPRESSION SCREENING 02/09/2024 INFLUENZA VACCINE (Season Ended) 2024 Respiratory Syncytial Virus (RSV) Vaccine Pt: or over 60 yrs (1 - 1-dose 75+ series) 2028 HEPATITIS B VACCINE Aged Out No longe r eligible based on patient's age to complete this topic HIB VACCINE Aged Out No longer eligi ble based on patient's age to complete this topic HPV VACCINE Aged Out No longer eligi ble based on patient's age to complete this topic MENINGOCOCCAL (Group B) VACC INE SHARED DECISION-MAKING Aged Out No longer eligibl e based on patient's age to complete this topic MENINGOCOCCAL GROUPS A/C/Y/W VACCINE Aged Out No longer eligible b ased on patient's age to complete this topic [place] [id number]
--- OUTSIDE RECORDS SUMMARY | 2024-05-29 15:41 | XMS_ITS | Encounter Summary ---
Author Organization [facility] Address [address] [place] [address] Care Team Providers Care Shrimp Pond Laborer Name Role Phone Unavailable Primary Care Provider Unavailabl e Encounter Details Date Type Department Care Team (Late st Contact Info) Description 12/08/2018 Lab Requisition [facility] [address] [place] [id number] Wolfgang Villarreal [place] [place] [address] Social History Tobacco Use Types Packs/Day Years Used Date Smoking Tobacco: Never Assessed Sex and Gender Information Value Date Recorded Sex Assigned at Not on file Legal Sex Male 12:34 PM CDT Gender Identity Not on file Sexual Orientation Not on file documented as of this encounter Plan of Treatment Not on file documented as of this encounter Procedures Procedure Name Priority Date/Time Associated Diagnosis Comments DERMATOPATHOLOGY Routine 12/07/2018 12:0 0 AM CDT documented in this encounter Results * DERMATOPATHOLOGY (12/07/2018 12:00 AM CDT) Case Report Dermatopathology Report Case: [id number] Authorizing Provider: Wolfgang Villarreal MD Collected: 12/07/2018 12:00 AM Ordering Location: [facility] Received: 12/08/2018 01:01 PM Pathologist: Gosia Lundberg MD Specimen: Skin, right side groin above scrotum 9 1:19 PM [facility] Final Diagnosis Specimen A. 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 1:19 PM [facility] Gross Description Specimen A: Received is one formalin filled container labeled with the patient's name and designated right side groin above scrotum. The specimen consists of a punch biopsy measuring [id number], bisected. Jar 0. 1:19 PM [facility] Microscopic Description Specimen A. SKIN, right side groin above scrotum: There is parakeratosis with scattered intracorneal neutrophils and underlying psoriasiform hyperplasia of the epidermis with foci of mild spongiosis. The suprapapillary plates are thinned and the granular layer is diminished. In the papillary dermis there are dilated, tortuous loops and a superficial perivascular lymphocytic infiltrate with rare eosinophils. Focal perifollicular lymphohistiocytic infiltrate is present. Grocott's methenamine silver (GMS) stain does not reveal fungal hyphae. 1:19 PM [facility] AP Comment The differential diagnosis includes a chronic eczematous process, hypersensitivity reaction, and psoriasis. Clinical correlation is recommended. 1:19 PM [facility] Disclaimer An external and internal positive and negative controls are appropriate for the histochemical, immunohistochemical and immunofluorescence stain(s) in this case (if any), except where stated explicitly. The performance characteristics of the stain(s) cited in this report were developed and its performance characteristic determined by the Dermatopathology Laboratory at [facility], directed by Dr. Krystin Zaldivar. These tests need not be, and therefore are not, approved by the [place] Food and Drug Administration. The tests are used for clinical purposes. Billing Codes Specimen Charges Stain Charges 61006 1 57680 1 1:19 PM [facility] Embedded Images 1:19 PM [facility] Pathology/Cytolog y TISSUE SPECIMEN FROM SKIN / Unknown 12/07/2018 12/08/2018 1:01 PM CDT Wolfgang Villarreal MD LAB - PATHOLOGY/CYTOLOGY ORD ERABLES Final Result DERMATOPATHOLOGY LABORATORY [facility] - Department of Dermatology [address] [place] [address], [address] [place] [address], [facility] [phone] documented in this encounter Visit Diagnoses Not on filedocumented in this encounter
--- OUTSIDE RECORDS SUMMARY | 2024-05-29 16:07 | XMS_ITS | Clinical Summary ---
Author Organization [facility] Address [address] [place] [address] Care Team Providers Care Post Acute Care Registered Nurse Name Role Phone Unavailable Primary Care Provider Unavailabl e Source Comments [facility],non-owned Affiliates and Associated Physician Practices is amultiple site organization consisting of ambulatory clinics and hospital sitesin [place], [place], [place] and [place]. This disclosure is being madepursuant to the Care Everywhere program and may not contain all information available regarding this patient. Last updated 17.[facility] Social History Tobacco Use Types Packs/Day Years [...]
--- OUTSIDE RECORDS SUMMARY | 2024-05-29 16:07 | XMS_ITS | Encounter Summary ---
Author Organization [facility] Address [address] [place] [place] [address] Care Team Providers Care Tube Fitter Name Role Phone Unavailable Primary Care Provider Unavailabl e Encounter Details Date Type Department Care Team (Late st Contact Info) Description 12/08/2018 Lab Requisition [facility] [address] [place] [phone] Wolfgang Villarreal [place] [place] [address] Social History Tobacco Use Types [...] AM CDT) Case Report Dermatopathology Report Case: [id number] Authorizing Provider: Wolfgang Villarreal MD Collected: 12/07/2018 12:00 AM Ordering Location: [facility] Received: 12/08/2018 01:01 PM Pathologist: Gosia Lundberg MD Specimen: Skin, right side groin above scrotum 9 1:19 PM [facility] Final Diagnosis Specimen A. 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 1:19 PM [facility] Gross Description Specimen A: Received is one formalin filled container labeled with the patient's name and designated right side groin above scrotum. The specimen consists of a punch biopsy measuring [id number], bisected. Jar 0. 1:19 PM [facility]ERMAT[facility]ATH[facility] Microscopic Description Specimen A. SKIN, [...] does not reveal fungal hyphae. 1:19 PM [facility] DERMATOPATHOLOGY [facility]ORATORY AP Comment The differential diagnosis includes a chronic eczematous process, hypersensitivity reaction, and psoriasis. Clinical correlation is recommended. 1:19 PM [facility]ERMATOPATHOLOGY [facility] Disclaimer An external and internal positive and negative controls are appropriate for the histochemical, immunohistochemical and immunofluorescence stain(s) in this case (if any), except where stated explicitly. The performance characteristics of the stain(s) cited in this report were developed and its performance characteristic determined by the Dermatopathology Laboratory at [facility], directed by Dr. Krystin Zaldivar. These tests need not be, and therefore are not, approved by the [place] Food and Drug Administration. The tests are used for clinical purposes. Billing Codes Specimen Charges Stain Charges 72680 1 18954 1 1:19 PM [facility] DERMATOPATHOLOGY [facility]ORATORY Embedded Images 1:19 PM [facility] DERMATOPATHOLOGY [facility]ORY Pathology/Cytolog y TISSUE SPECIMEN FROM SKIN / Unknown 12/07/2018 12/08/2018 1:01 PM CDT Wolfgang Villarreal MD LAB - PATHOLOGY/CYTOLOGY ORD ERABLES Final Result DERMATOPATHOLOGY LABORATORY [facility] - Department of Dermatology [address] [place] [address], [address] [place] [address], [facility] [phone] documented in this encounter Visit Diagnoses Not on filedocumented in this encounter
== END 2024-05-29 18:13 | disposition home or self-care (01) ==
PROVIDERS: Emergency Provider Physician Assistant
DX: H10.89 Other conjunctivitis (principal); R00.0 Tachycardia, unspecified; R94.31 Abnormal electrocardiogram [ECG] [EKG]
CPT/HCPCS: 93005; 99283